=== PATIENT | female | born 2000 | race Caucasian/White ===

== ENCOUNTER 2024-04-13 11:21 | Day surgery (SDC) | payer OTHER ==
[2024-04-13] MEDS ORDERED: CEFAZOLIN SODIUM 1,000 MG VIAL ONE (12:38)
[2024-04-13] MEDS ORDERED: TRANEXAMIC ACID 100MG/1ML (1000MG) AMPUL IV ONE ×2 (15:15→16:00)
[2024-04-13] MEDS ORDERED: LIDOCAINE HCL 1%/EPINEPHRINE 20ML VIAL IJ ONE ×3 (15:41→16:30)
[2024-04-13] MEDS ORDERED: BUPIVACAINE HCL/MPF 0.5% 30ML VIAL ONE (15:41)
[2024-04-13] MEDS ORDERED: BUPIVACAINE HCL 0.5% 50ML VIAL ONE (16:00)
[2024-04-13] MEDS ORDERED: BUPIVACAINE HCL/PF 0.25% 50 ML VIAL IJ ONE (16:30)
== END 2024-04-13 23:00 | disposition home or self-care (01) ==
LOC: CIR.AMB 11:21
PROVIDERS: ATTEND Specialist
DX: N62 Hypertrophy of breast (principal); N64.89 Other specified disorders of breast